=== PATIENT | male | born 1955 | race Two or more races ===

== ENCOUNTER 2019-07-31 16:06 | Emergency (ER) | payer OTHER ==
[~2019-07-31] VITALS: Ht 165.1 cm; Wt 97.0 kg
[2019-07-31 17:59] LABS: EOSINOPHILS % 2.4 % (0.0-5.0); HEMATOCRIT. 40.8 % (42.0-52.0); HEMOGLOBIN. 13.3 g/dL (14.0-18.0); LYMPHOCYTES % 21.3 % (20.0-50.0); MEAN CORPUSCULAR HEMOGLOBIN 26.4 pg (28.0-32.0); MEAN CORPUSCULAR VOLUME 81.3 fL (80.0-94.0); MEAN PLATELET VOLUME 8.5 fl (7.4-10.4); MONOCYTES % 7.5 % (2.0-8.0); NEUTROPHILS % 67.8 % (40.0-76.0); PLATELET 226 x1000/uL (130-400); RED BLOOD CELL COUNT 5.02 mill/uL (4.7-6.1); RED CELL DISTRIBUTION WIDTH 17.4 % (11.6-14.6)
[2019-07-31 18:04] LABS: CHLORIDE 108 mEq/L (98-107)
[2019-07-31] MEDS ORDERED: CLOPIDOGREL 75MG TABLET PO ONE (20:00)
[2019-07-31 22:46] VITALS: BP 136/71
== END 2019-08-01 00:22 | disposition home or self-care (01) ==
LOC: ER 16:43 → 6WST 20:58 → UNDOADMIN 20:58 → EDBEDREQTM 21:11 → EDBEDREQ 21:11 → ENRESERV 22:06 → CANBEDREQ 22:46 → ER 08-01 00:22
DX: R55 Syncope and collapse (principal); E86.0 Dehydration; D64.9 Anemia, unspecified; I49.9 Cardiac arrhythmia, unspecified; I44.7 Left bundle-branch block, unspecified; I10 Essential (primary) hypertension; E11.9 Type 2 diabetes mellitus without complications; I25.2 Old myocardial infarction; Z98.61 Coronary angioplasty status
CPT/HCPCS: 36415; 71045; 80053; 82962; 84484; 85025; 93005; 99284; Z7610